=== PATIENT | male | born 1985 | race Caucasian/White ===

== ENCOUNTER 2017-11-12 15:33 | Emergency (ER) | payer OTHER ==
[~2017-11-12] VITALS: Ht 172.7 cm; Wt 139.4 kg
[2017-11-12 15:39] VITALS: TEMP 36.4; Ht 172.7 cm; Wt 139.4 kg
[2017-11-12] MEDS ORDERED: GLC/500 PO (15:59)
[2017-11-12] MEDS ORDERED: PRLSR20 PO (15:59)
--- NOTE | 2017-11-12 16:11 | DIAGNOSTIC IMAGING REPORT ---
R ANKLE MIN 3 VIEWS ROUTINE CLINICAL HISTORY: Right ankle pain COMPARISON: None. DISCUSSION: No acute fractures or subluxations are visualized. There is a tiny plantar calcaneal spur and Achilles insertional spur. There is mild soft tissue swelling. There is an equivocal small joint effusion. IMPRESSION: No fractures identified. Electronically signed by: Alexi Baptiste M.D. 11/12/2017 4:09 PM Dictated Date/Time: 11/12/2017 4:08 PM
[2017-11-12] MEDS ORDERED: HYDROCODONE/ACETAMIN 5/325MG TAB PO ONE (16:30)
--- NOTE | 2017-11-12 16:37 | DIAGNOSTIC IMAGING REPORT ---
R FOOT MIN 3 VIEWS ROUTINE CLINICAL HISTORY: Right foot pain COMPARISON: None. DISCUSSION: No acute fractures are visualized. There is a small plantar calcaneal spur, and Achilles insertional spur. There arthritic changes at the level of the interphalangeal joint of the great toe and first metatarsal phalangeal joint. IMPRESSION: 1. No acute fractures 2. 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 Electronically signed by: Alexi Baptiste M.D. 11/12/2017 4:36 PM Dictated Date/Time: 11/12/2017 4:35 PM
[2017-11-12 17:27] VITALS: BP 145/88; PULSE 88; O2SAT 98
--- NOTE | 2017-11-12 22:20 | EMERGENCY ROOM VISIT NOTE ---
ED Visit Note First contact with patient: 15:41 Chief Complaint: Right ankle pain. History of Present Illness: Mr. Melara is a 32-year-old white male who ambulates on crutches into the ED complaining of right ankle and foot pain. Historically patient denies any previous significant injuries or surgeries to the ankle. He does report that he has had previous gout which has been mostly confined to his right great toe. Patient reports to nights ago he was at his father's house. He reports there is a ramp into his father's house from a previous CVA and he twisted his ankle and foot. Since that time he reports she has been having increasing pain and swelling over the top of the foot and the lateral aspect of the ankle. He describes his pain as an achy sensation. He rates his discomfort 8/10. His pain is nonradiating. His pain worsens with palpation and ambulation. He has been using ibuprofen without relief of his discomfort. Associated with his pain he has noted swelling over the top of the foot and over the lateral aspect of the ankle. He denies direct trauma to the ankle, falls, knee pain, lower leg pain, ankle/ foot weakness/numbness/tingling. Review of Systems: As noted above in history of present illness. Past Medical History: As previously noted, hypertension, diabetes, GERD. Current Medications: Glucophage, Prilosec Allergies to Medications: Patient denies. Social History: Patient is currently employed; he feels safe in his home environment; he admits to tobacco use and denies alcohol use. Physical Examination: Vital Signs: Date Time Temp Pulse Resp B/P (MAP) Pulse Ox O2 Delivery O2 Flow Rate FiO2 11/12/17 17:27 88 20 145/88 98 11/12/17 15:39 36.4 105 20 155/83 98 Room Air GENERAL: 32-year-old male in mild distress due to pain, nontoxic-appearing, afebrile and hemodynamically stable. NEUROLOGICAL: Awake, alert and oriented to person, place and time. Answering questions appropriately and following commands. SKIN: Warm, dry and pink. No soft tissue trauma noted. RIGHT LOWER LEG: No gross bony deformity. No tenderness in the hip, lower leg. Mild tenderness over the area just anterior to the lateral malleolus with associated swelling. There is also tenderness over the top of the foot in the areas of the third through fifth metatarsals. There is no erythema over either of these areas. I do not appreciate any bony deformity or crepitus. I did not appreciate any ligamentous laxity on testing. Patient has full range of motion in 4/5 muscle strength in all movements of the ankles and the toes. Throughout the foot the skin was warm and pink and capillary refill is brisk. He was able to distinguish light sensations to all dermatomes. ED Course: Patient is assessed as noted above. Patient's medication list was reviewed. Patient was given ice and 1 5/325 mg [place] tablet by mouth for pain. Right Ankle X-Rays: Were read by myself and the radiologist showing no acute fractures or dislocations. Right Foot X-Rays: Were read by myself and the radiologist and shows no acute fractures or dislocations. Patient was placed in a postop shoe and a gel splint; he came into the ED with his own crutches. Patient was educated about today's findings and instructed on his treatment plan ; he verbalized understanding and agreement with this plan. Clinical Impression: Right ankle pain. Right foot pain. Disposition: Patient discharged home in stable condition accompanied by his girlfriend; prior to departure he was reassessed and subjectively reported he was feeling better and rated his discomfort 5/10. Plan: Comfort measures including rest, ice, elevation, postop splint and gel splint and crutch use is were discussed with the patient. Patient was encouraged to follow-up with orthopedics if no better in 7-10 days. Patient was encouraged to return the ED for worsening/uncontrolled pain, uncontrolled swelling, foot weakness/numbness/tingling or any new/concerning symptoms.
== END 2017-11-12 17:29 | disposition home or self-care (01) ==
LOC: C.EDB 15:34 → C.EDD 17:29
DX: M25.571 Pain in right ankle and joints of right foot (principal); I10 Essential (primary) hypertension; E11.9 Type 2 diabetes mellitus without complications; K21.9 Gastro-esophageal reflux disease without esophagitis; F17.200 Nicotine dependence, unspecified, uncomplicated; Z79.84 Long term (current) use of oral hypoglycemic drugs